=== PATIENT | male | born 1980 | race Caucasian/White ===

== ENCOUNTER 2017-06-23 14:42 | Emergency (ER) | payer OTHER ==
[~2017-06-23] VITALS: Ht 182.9 cm; Wt 133.0 kg
[2017-06-23 14:46] VITALS: TEMP 36.4; Ht 182.9 cm; Wt 133.0 kg
[2017-06-23] MEDS ORDERED: SODIUM CHLORIDE 0.9% 1000ML 1,000 ML IV STA (15:00)
--- NOTE | 2017-06-23 15:40 | DIAGNOSTIC IMAGING REPORT ---
ABD/PELVIS WITHOUT FOR STONE CLINICAL HISTORY: 37 years-old Male presenting with EVAL R FLANK PAIN, history of renal stones, no hematuria. TECHNIQUE: Multidetector CT of the abdomen and pelvis was performed without the use of intravenous contrast. IV contrast: None. A dose lowering technique was used consistent with the principles of ALARA (as low as reasonably achievable). COMPARISON: None. CT DOSE (mGy.cm): The estimated cumulative dose is 2346.17 mGy.cm. FINDINGS: Commercial Drafter topogram: Unremarkable. Lung bases: Lungs and pleural spaces clear. Normal heart size. No pericardial or pleural effusion. Liver: Normal morphology. Density consistent with hepatic steatosis. Biliary: No gross biliary ductal dilatation allowing for noncontrast technique. Normal gallbladder. Pancreas: Mild parenchymal atrophy. Spleen: Normal noncontrast appearance. Splenule noted. Adrenal glands: Normal noncontrast appearance. Kidneys and ureters: Multiple bilateral renal calculi. Multiple punctate nonobstructing calculi noted in the right kidney. The left kidney demonstrates a larger 11 mm oblong calculus at the lower pole in addition to other punctate nonobstructing calculi. Mild right pelvocaliectasis with dilatation of the proximal right ureter. An obstructing 4 mm calculus is noted at the level of L4. The distal mid to distal right ureter is normal. Left ureter normal. Bladder: Normal. Pelvic organs: Prostate and seminal vesicles normal. Bowel: Normal appendix. No bowel obstruction. Peritoneal cavity: No free fluid or intraperitoneal gas. Lymph nodes: No gross lymphadenopathy allowing for noncontrast technique. Vasculature: Normal noncontrast appearance. Abdominal wall: Small fat-containing umbilical hernia. Musculoskeletal: Bilateral pars defects of L5. IMPRESSION: 1. Obstructing 4 mm calculus in the proximal right ureter at the level of L4 with resultant mild right hydronephrosis. 2. Bilateral nephrolithiasis, the largest calculus in the left kidney. 3. Hepatic steatosis. Electronically signed by: Peng Wynne M.D. 06/23/2017 3:39 PM Dictated Date/Time: 06/23/2017 3:32 PM
[2017-06-23] MEDS ORDERED: KETOROLAC TROMETHAMINE 30 MG/ML VIAL IV STA (16:04)
[2017-06-23 16:06] LABS: BASO % 0.2 %; BASO ABS # 0.03 K/uL (0-0.2); EOS % 0.1 %; EOS ABS # 0.01 K/uL (0-0.5); HEMATOCRIT 44.4 % (42-52); HEMOGLOBIN 15.7 g/dL (14.0-18.0); IG# 0.06 K/uL (0.00-0.02); LYMPH % 13.5 %; LYMPH ABS # 1.74 K/uL (1.2-3.4); MEAN CELL VOLUME 83.9 fL (80-100); MEAN CORPUSCULAR HEMOGLOBIN 29.7 pg (25-34); MEAN CORPUSCULAR HGB CONC 35.4 g/dl (32-36); MEAN PLATELET VOLUME 9.4 fL (7.4-10.4); MONO % 4.8 %; MONO ABS # 0.62 K/uL (0.11-0.59); NEUT % 80.9 %; NEUT ABS # 10.39 K/uL (1.4-6.5); PLATELET COUNT 172 K/uL (130-400); RED CELL DISTRIBUTION WIDTH CV 13.3 % (11.5-14.5); RED CELL DISTRIBUTION WIDTH SD 40.1 fL (36.4-46.3); WHITE BLOOD COUNT 12.85 K/uL (4.8-10.8)
[2017-06-23 16:24] LABS: ALBUMIN 3.9 gm/dl (3.4-5.0); CALCIUM 8.7 mg/dl (8.5-10.1); CREATININE 1.41 mg/dl (0.60-1.40); POTASSIUM 4.2 mmol/L (3.5-5.1)
[2017-06-23 16:27] LABS: TOTAL PROTEIN 8.1 gm/dl (6.4-8.2)
[2017-06-23] MEDS ORDERED: TAMSULOSIN HCL 0.4 MG CAP PO ONE (16:30)
[2017-06-23] MEDS ORDERED: KETO10TA PO (17:14)
[2017-06-23] MEDS ORDERED: TAMS0.4C38 PO (17:14)
[2017-06-23] MEDS ORDERED: OXYC-57 PO (17:15)
--- NOTE | 2017-06-23 18:03 | EMERGENCY ROOM VISIT NOTE ---
ED Visit Note First contact with patient: 14:51 CHIEF COMPLAINT: Right flank pain 5 hours HISTORY OF PRESENT ILLNESS: Patient is a 37-year-old white male with past medical history significant for kidney stones who presents to emergency department for evaluation of right flank pain. He states symptoms started around 9:30 this morning. Initially the pain was in his right back and side, and now is more in the right lower quadrant, lateral to the umbilicus. He reports some slight nausea and dry heaves with increased pain. Pain has been coming and going in waves. He has a lot of pressure that makes voiding difficult. He states that this feels very similar to his prior stones. Last stone was about 3 years ago. He's had 3 kidney stones previously, all were on the right side. He reports that they are combination of uric acid and calcium oxalate stones. He has not had a uric acid level checked in some time. He had been on allopurinol in the past. He was able to pass the first 2 stones on his own, the third stone was larger and required stenting and lithotripsy. Patient had ketorolac at home which he took with slight relief of his discomfort. He denies any dysuria, frequency, urgency or hematuria. Bowel movements have been normal. No other abdominal surgeries. He denies fever. He presently rates his pain a 7/10. REVIEW OF SYSTEMS: Review of systems as per HPI. All other systems reviewed were negative. 10 systems reviewed. PMH: Electronic medical records are reviewed and summarized as above/below. See Problem List. SOCIAL HISTORY: Patient lives at home with his family. Employed as a pharmacist. He does not smoke. PHYSICAL EXAM: Vital Signs: Reviewed Nurse's notes. CONSTITUTIONAL: Patient is obese, slightly uncomfortable-appearing 37-year-old male who is awake and alert and in moderate distress due to his stated complaint. is at bedside. NECK: Supple without lymphadenopathy. No thyromegaly. No meningeal signs. Full active range of motion without discomfort. CARDIOVASCULAR: Regular rate and rhythm, with normal S1 and S2, no murmur or gallop or rub is heard. No carotid bruits auscultated. No JVD. Peripheral pulses easily palpable. RESPIRATORY: Breath sounds equal and clear to auscultation without wheezes, rales, or rhonchi heard. Full and equal chest expansion without accessory muscle use or retractions. ABDOMEN: Bowel sounds are present. Abdomen is soft, nondistended, mildly tender in the right mid abdomen, without guarding, rebound or rigidity. INTEGUMENTARY: No lesions or rash, normal skin turgor. LYMPH: No lymphadenopathy. EMERGENCY DEPARTMENT COURSE: The patient was seen and assessed as above. His old records are reviewed. IV lock was initiated and he was hydrated with a liter bolus of normal saline solution. The patient preferred to hold on any pain medication prior to CT scan. CBC with differential, CMP, urinalysis and a uric acid were drawn. Noncontrast CT scan of the abdomen and pelvis was performed. CT scan findings were reviewed with the patient and his . Given the small size of the stone he in the right ureter, it was felt that this stone could reasonably pass on its own, and therefore the patient was amenable to Toradol. He was given 30 mg IV. Patient's white count is slightly elevated at 12,800 of unclear significance. H &H is normal. Electrolytes are without significant abnormality. Creatinine slightly bumped at 1.41. The patient's uric acid level is elevated at 7.9. LFTs are normal. Urinalysis notes hematuria, no other indicators for infection. The patient was reassessed frequently, and continued to decline any additional medications for pain. He was amenable to a trial of Flomax and was given 0.[address], he has evidence for bilateral nephrolithiasis, including a larger, 1 cm calculus in the lower pole of the left kidney. This stone in question is an obstructing 4 mm calculus at the L4 level, with resultant mild right hydronephrosis. Patient has elevated white count, but is afebrile. Urine does not appear consistent with infection. He would like to try NSAIDs and Flomax primarily, but was amenable to a prescription for Percocet to use as needed for severe pain. He was educated on the worrisome signs or symptoms for which she should return to the emergency department. He was discharged to home with his in stable condition. He rated his pain a 5/10 at discharge. Differential diagnoses entertained included UTI, pyelonephritis, renal colic, appendicitis, bowel obstruction, perforation, abscess, biliary colic, musculoskeletal pain, shingles, among others. Medication reconciliation: I attest that I have personally reviewed the patient' s current medication list. Blood pressure screening: Patient was found to have a slightly elevated blood pressure due to circumstances. I do not believe that the patient requires hypertension monitoring. Patient was reviewed in the [facility] Prescription Drug Monitoring Program, and there were no red flags noted. ABD/PELVIS WITHOUT FOR STONE CLINICAL HISTORY: 37 years-old Male presenting with EVAL R FLANK PAIN, history of renal stones, no hematuria. TECHNIQUE: Multidetector CT of the abdomen and pelvis was performed without the use of intravenous contrast. IV contrast: None. A dose lowering technique was used consistent with the principles of ALARA (as low as reasonably achievable). COMPARISON: None. CT DOSE (mGy.cm): The estimated cumulative dose is 2346.17 mGy.cm. FINDINGS: Visual Design Lead topogram: Unremarkable. Lung bases: Lungs and pleural spaces clear. Normal heart size. No pericardial or pleural effusion. Liver: Normal morphology. Density consistent with hepatic steatosis. Biliary: No gross biliary ductal dilatation allowing for noncontrast technique. Normal gallbladder. Pancreas: Mild parenchymal atrophy. Spleen: Normal noncontrast appearance. Splenule noted. Adrenal glands: Normal noncontrast appearance. Kidneys and ureters: Multiple bilateral renal calculi. Multiple punctate nonobstructing calculi noted in the right kidney. The left kidney demonstrates a larger 11 mm oblong calculus at the lower pole in addition to other punctate nonobstructing calculi. Mild right pelvocaliectasis with dilatation of the proximal right ureter. An obstructing 4 mm calculus is noted at the level of L4. The distal mid to distal right ureter is normal. Left ureter normal. Bladder: Normal. Pelvic organs: Prostate and seminal vesicles normal. Bowel: Normal appendix. No bowel obstruction. Peritoneal cavity: No free fluid or intraperitoneal gas. Lymph nodes: No gross lymphadenopathy allowing for noncontrast technique. Vasculature: Normal noncontrast appearance. Abdominal wall: Small fat-containing umbilical hernia. Musculoskeletal: Bilateral pars defects of L5. IMPRESSION: 1. Obstructing 4 mm calculus in the proximal right ureter at the level of L4 with resultant mild right hydronephrosis. 2. Bilateral nephrolithiasis, the largest calculus in the left kidney. 3. Hepatic steatosis. Problem List Medical Problems: (1) Calculus Of Kidney Status: Chronic (2) Obesity Status: Chronic Surgical Problems: (1) History of cystoscopy Status: Resolved (2) History of lithotripsy Status: Resolved Current/Historical Medications Scheduled Tamsulosin Hcl (Flomax), 0.4 MG PO DAILY Scheduled PRN Ketorolac Tromethamine (Toradol), 1 TAB PO Q6H PRN for Pain Oxycodone/Acetaminophen 5MG/325MG (Percocet 5MG/325MG), 1-2 TABS PO Q4 PRN for Pain Allergies Coded Allergies: No Known Allergies (Unverified , 06/23/17) Vital Signs Date Time Temp Pulse Resp B/P (MAP) Pulse Ox O2 Delivery O2 Flow Rate FiO2 06/23/17 18:34 66 20 152/94 98 06/23/17 16:00 66 20 190/95 98 Room Air 06/23/17 14:46 36.4 67 20 152/91 94 Room Air Laboratory Results 06/23/17 15:54 Red Blood Count 5.29, Mean Corpuscular Volume 83.9, Mean Corpuscular Hemoglobin 29.7, Mean Corpuscular Hemoglobin Concent 35.4, Mean Platelet Volume 9.4, Neutrophils (%) (Auto) 80.9, Lymphocytes (%) (Auto) 13.5, Monocytes (%) (Auto) 4.8, Eosinophils (%) (Auto) 0.1, Basophils (%) (Auto) 0.2, Neutrophils # (Auto) 10.39, Lymphocytes # (Auto) 1.74, Monocytes # (Auto) 0.62, Eosinophils # (Auto) 0.01, Basophils # (Auto) 0.03 06/23/17 15:54 Test 06/23/17 15:54 06/23/17 17:25 White Blood Count 12.85 K/uL (4.8-10.8) Red Blood Count 5.29 M/uL (4.7-6.1) Hemoglobin 15.7 g/dL (14.0-18.0) Hematocrit 44.4 % (42-52) Mean Corpuscular Volume 83.9 fL (80-100) Mean Corpuscular Hemoglobin 29.7 pg (25-34) Mean Corpuscular Hemoglobin Concent 35.4 g/dl (32-36) Platelet Count 172 K/uL (130-400) Mean Platelet Volume 9.4 fL (7.4-10.4) Neutrophils (%) (Auto) 80.9 % Lymphocytes (%) (Auto) 13.5 % Monocytes (%) (Auto) 4.8 % Eosinophils (%) (Auto) 0.1 % Basophils (%) (Auto) 0.2 % Neutrophils # (Auto) 10.39 K/uL (1.4-6.5) Lymphocytes # (Auto) 1.74 K/uL (1.2-3.4) Monocytes # (Auto) 0.62 K/uL (0.11-0.59) Eosinophils # (Auto) 0.01 K/uL (0-0.5) Basophils # (Auto) 0.03 K/uL (0-0.2) RDW Standard Deviation 40.1 fL (36.4-46.3) RDW Coefficient of Variation 13.3 % (11.5-14.5) Immature Granulocyte % (Auto) 0.5 % Immature Granulocyte # (Auto) 0.06 K/uL (0.00-0.02) Anion Gap 5.0 mmol/L (3-11) Est Creatinine Clear Calc Drug Dose 100.2 ml/min Estimated GFR () 72.7 Estimated GFR (Non- 62.7 BUN/Creatinine Ratio 12.9 (10-20) Uric Acid 7.9 mg/dl (2.6-7.2) Calcium Level 8.7 mg/dl (8.5-10.1) Total Bilirubin 0.9 mg/dl (0.2-1) Aspartate Amino Transf (AST/SGOT) 40 U/L (15-37) Alanine Aminotransferase (ALT/SGPT) 64 U/L (12-78) Alkaline Phosphatase 63 U/L (45-117) Total Protein 8.1 gm/dl (6.4-8.2) Albumin 3.9 gm/dl (3.4-5.0) Globulin 4.2 gm/dl (2.5-4.0) Albumin/Globulin Ratio 0.9 (0.9-2) Urine Color YELLOW Urine Appearance CLEAR (CLEAR) Urine pH 5.0 (4.5-7.5) Urine Specific [place] 1.021 (1.000-1.030) Urine Protein NEG (NEG) Urine Glucose (UA) NEG (NEG) Urine Ketones NEG (NEG) Urine Occult Blood 1+ (NEG) Urine Nitrite NEG (NEG) Urine Bilirubin NEG (NEG) Urine Urobilinogen NEG (NEG) Urine Leukocyte Esterase NEG (NEG) Urine WBC (Auto) 1-5 /hpf (0-5) Urine RBC (Auto) 5-10 /hpf (0-4) Urine Hyaline Casts (Auto) 0 /lpf (0-5) Urine Epithelial Cells (Auto) 20-30 /lpf (0-5) Urine Bacteria (Auto) NEG (NEG) Medications Administered Medications (Trade) Dose Ordered Sig/Joycelyn Route Start Time Stop Time Status Last Admin Dose Admin Sodium Chloride 1,000 ml @ 999 mls/hr Q1H1M STAT IV 06/23/17 15:00 06/23/17 16:00 DC 06/23/17 15:19 999 MLS/HR Ketorolac Tromethamine (Toradol Inj) 30 mg NOW STAT IV 06/23/17 16:04 06/23/17 16:07 DC 06/23/17 16:11 30 MG Tamsulosin HCl (Flomax Cap) 0.4 mg NOW ONCE PO 06/23/17 16:30 06/23/17 16:31 DC 06/23/17 17:10 0.4 MG Departure Information Impression Primary Impression: Right ureteral calculus Additional Impression: Bilateral nephrolithiasis Prescriptions Oxycodone/Acetaminophen 5MG/325MG (PERCOCET 5MG/325MG) Tab 1-2 TABS PO Q4 Y for Pain, #25 TAB For Initial Treatment Prov: Nathaly Beard PA 06/23/17 Ketorolac Tromethamine (TORADOL) 10 Mg Tab 1 TAB PO Q6H Y for Pain for 5 Days, #20 TAB Prov: Nathaly Beard PA 06/23/17 Tamsulosin Hcl (FLOMAX) 0.4 Mg Cap 0.4 MG PO DAILY, #14 CAP Prov: Nathaly Beard PA 06/23/17 Referrals Fer Cardenas M.D. (PCP) Doron Pritchett MD, Urology Patient Instructions [facility] Additional Instructions Percocet 5/325 mg: Take 1-2 pills every four hours for pain. Avoid alcohol, operating machinery or dangerous equipment, working on ladders or roofs, DRIVING , or situations where being under the influence may be dangerous. It is recommended to use an [id number] stool softener such as Colace, 100mg twice daily while taking this medication to avoid constipation. Flomax 0.4 mg: Take one tablet daily 2 weeks. Make it discontinue if you pass the stone. Toradol 10mg : Take one tablet every 6 hours as needed for pain. Do not exceed more than 40 mg in 24 hours. Strain your urine and collect all the stones or debris for the urologists. Rest and avoid strenuous activity until your stone passes and symptoms resolve. Drink plenty of fluids. Continue current medications. Return to the ER for worsening abdominal or back pain, vomiting, fevers, passing out, or as needed. Follow up with your primary care physician or with urology next week for recheck. Problem Qualifiers
[2017-06-23 18:34] VITALS: BP 152/94; PULSE 66; O2SAT 98
[2017-11-05] MEDS ORDERED: POTA1080 PO (11:18)
[2017-11-05] MEDS ORDERED: HYG/25 PO (11:18)
[2017-11-05] MEDS ORDERED: ALLO300T2 PO (11:18)
[2017-11-22] MEDS ORDERED: IBUP-1050 PO (10:26)
[2017-11-22] MEDS ORDERED: PSEU30TA3 PO (10:27)
[2017-11-22] MEDS ORDERED: CIPR-255 PO (11:14)
[2017-11-22] MEDS ORDERED: OXYC7.5T65 PO (11:14)
[2017-11-22] MEDS ORDERED: PHEN-775 PO (11:14)
== END 2017-06-23 18:35 | disposition home or self-care (01) ==
LOC: C.EDB 14:44
DX: N20.1 Calculus of ureter (principal); N20.0 Calculus of kidney; E66.9 Obesity, unspecified

== ENCOUNTER → 2017-07-18 | Outpatient (CLI) | payer OTHER ==
[~2017-07-18] MED LIST: OXYC-57 PO
== END | disposition home or self-care (01) ==
LOC: C.LABSPEC 17:21
PROVIDERS: ATTEND Urology
DX: N20.0 Calculus of kidney (principal)

== ENCOUNTER → 2017-08-02 | Outpatient (CLI) | payer OTHER ==
--- NOTE | 2017-08-02 14:55 | DIAGNOSTIC IMAGING REPORT ---
KUB HISTORY: Follow-up study in a patient with kidney stones N20.0 Uric acid nephrolithiasis COMPARISON: CT abdomen and pelvis 06/23/2017 FINDINGS: The bowel gas pattern is non-obstructive. There is no organomegaly. Phleboliths of the pelvis redemonstrated. There are at least 3 calculi of the left kidney, largest of which measures 9 mm within the region of the inferior pole. No definite right-sided renal calculi or ureteral calculi identified. No pneumoperitoneum or pneumatosis. No fracture. IMPRESSION: Left-sided nephrolithiasis without definite right nephrolithiasis or ureteral calculi identified. Electronically signed by: Hakeem Fitzpatrick M.D. 08/02/2017 2:54 PM Dictated Date/Time: 08/02/2017 2:51 PM
== END | disposition home or self-care (01) ==
LOC: C.RAD 14:28
PROVIDERS: ATTEND Urology
DX: N20.0 Calculus of kidney (principal)

== ENCOUNTER → 2017-09-13 | Outpatient (CLI) | payer OTHER ==
[2017-09-13 17:18] LABS: HEMATOCRIT 44.2 % (42-52); HEMOGLOBIN 14.8 g/dL (14.0-18.0); MEAN CELL VOLUME 85.5 fL (80-100); MEAN CORPUSCULAR HEMOGLOBIN 28.6 pg (25-34); MEAN CORPUSCULAR HGB CONC 33.5 g/dl (32-36); MEAN PLATELET VOLUME 10.1 fL (7.4-10.4); PLATELET COUNT 181 K/uL (130-400); RED CELL DISTRIBUTION WIDTH SD 43.6 fL (36.4-46.3); WHITE BLOOD COUNT 8.79 K/uL (4.8-10.8)
[2017-09-13 17:31] LABS: ALBUMIN 3.5 gm/dl (3.4-5.0); ALT/SGPT 77 U/L (12-78); AST/SGOT 55 U/L (15-37); BLOOD UREA NITROGEN 17 mg/dl (7-18); CALCIUM 8.5 mg/dl (8.5-10.1); CARBON DIOXIDE 29 mmol/L (21-32); CREATININE 1.13 mg/dl (0.60-1.40); GLUCOSE 100 mg/dl (70-99); POTASSIUM 4.4 mmol/L (3.5-5.1); SODIUM 137 mmol/L (136-145); URIC ACID 4.9 mg/dl (2.6-7.2)
[2017-09-13 17:34] LABS: ALKALINE PHOSPHATASE 61 U/L (45-117); TOTAL PROTEIN 7.3 gm/dl (6.4-8.2)
== END | disposition home or self-care (01) ==
LOC: C.LABPVFM 12:54
PROVIDERS: ATTEND Internal Medicine Nephrology
DX: N20.0 Calculus of kidney (principal)